=== PATIENT | female | born 1990 | race Caucasian/White ===

== ENCOUNTER 2020-07-28 19:42 | Emergency (ER) | payer OTHER ==
[2020-07-28] MEDS ORDERED: KETOROLAC 15 MG/ML 1 ML VIAL IM STA (20:18)
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
[2020-07-28 22:06] VITALS: BP 118/71; PULSE 68; RESP 16; TEMP 98.1
== END 2020-07-28 21:40 | disposition home or self-care (01) ==
LOC: EC 19:42
DX: S16.1XXA Strain of muscle, fascia and tendon at neck level, initial encounter (principal); F32.9 Major depressive disorder, single episode, unspecified; M43.6 Torticollis; F17.200 Nicotine dependence, unspecified, uncomplicated; W22.8XXA Striking against or struck by other objects, initial encounter
CPT/HCPCS: 81025; 72125; 70450; 99284; 96372; J1885

== ENCOUNTER 2022-09-04 21:55 | Emergency (ER) | payer OTHER ==
[2022-09-04 22:01] VITALS: BP 114/90; RESP 18; TEMP 98.1
[2022-09-04] MEDS ORDERED: LORazepam 2 MG/ML INJ IM STA (22:15)
[2022-09-04 22:21] VITALS: PULSE 90
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
== END 2022-09-04 23:50 | disposition home or self-care (01) ==
LOC: EC 21:55
DX: F41.0 Panic disorder [episodic paroxysmal anxiety] (principal); F17.200 Nicotine dependence, unspecified, uncomplicated; Z88.5 Allergy status to narcotic agent
CPT/HCPCS: 99283; 96372; J2060

== ENCOUNTER 2023-01-07 02:20 | Emergency (ER) | payer OTHER ==
[2023-01-07] MEDS ORDERED: IBUPROFEN 600 MG TAB PO STA (04:15)
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
[2023-01-07] MEDS ORDERED: ACETAMINOPHEN TAB 325 MG TAB PO STA (04:32)
[2023-01-07 04:46] VITALS: BP 98/75; PULSE 78; RESP 19; TEMP 98.1
--- NOTE | 2023-01-07 06:51 | XR ---
EXAMINATION TYPE: XR elbow complete RT DATE OF EXAM: 01/07/2023 CLINICAL HISTORY: pain TECHNIQUE: Frontal, lateral and oblique images of the right elbow are obtained. COMPARISON: None. FINDINGS: There is no acute fracture/dislocation evident of the elbow. No abnormal fat pad signs ar e seen. The overlying soft tissue appears unremarkable. IMPRESSION: There is no acute fracture or dislocation of the elbow. ICD 10 NO FRACTURE, INITIAL EVALUATION
== END 2023-01-07 04:47 | disposition home or self-care (01) ==
LOC: EC 02:20
DX: S50.01XA Contusion of right elbow, initial encounter (principal); F17.200 Nicotine dependence, unspecified, uncomplicated; Z88.5 Allergy status to narcotic agent; Y00.XXXA Assault by blunt object, initial encounter; Y92.009 Unspecified place in unspecified non-institutional (private) residence as the place of occurrence of the external cause
CPT/HCPCS: 99284

== ENCOUNTER 2023-11-12 14:16 | Emergency (ER) | payer OTHER ==
[2023-11-12 14:27] VITALS: RESP 18
--- NOTE | 2023-11-12 15:06 | ED ---
Lower Extremity Injury HPI - General Chief Complaint: Extremity Injury, Lower Stated Complaint: Fall, fluid in left knee injury Time Seen by Provider: 11/12/23 15:02 Source: patient, RN notes reviewed Mode of arrival: ambulatory Limitations: no limitations - History of Present Illness Initial Comments: 32-year-old female with no significant past medical history presenting with left knee pain x 3 weeks. States she had a mechanical fall 3 weeks ago, directly hitting her knee on metal. Since the injury, she has had an increasing amount of pain and swelling. She reports she has tried ice and Motrin, however swelling has not resolved. She reports the pain is mostly on the posterior aspect of left knee with some mild anterior pain as well. Denies numbness or tingling to the lower leg. Denies calf swelling. She is a current tobacco smoker, admitting to about 1/2 pack/day. Denies history of blood clots, thinners, recent travel or surgeries, estrogen replacement therapy. - Related Data Home Medications Medication Instructions Recorded Confirmed Acetaminophen Tab [Tylenol] 650 mg PO Q8H PRN 07/28/20 07/28/20 Ibuprofen [Motrin Ib] 600 mg PO Q8H PRN 07/28/20 07/28/20 Naproxen [Naprosyn] 500 mg PO Q12HR 07/28/20 07/28/20 tiZANidine HCL 4 mg PO TID PRN 07/28/20 07/28/20 Allergies Allergy/AdvReac Type Severity Reaction Status Date / Time codeine Allergy Dyspnea Verified 11/12/23 14:25 Review of Systems ROS Statement: Those systems with pertinent positive or pertinent negative responses have been documented in the HPI. ROS Other: All systems not noted in ROS Statement are negative. Past Medical History Past Medical History: Asthma Additional Past Medical History / Comment(s): chronic neck and back pain History of Any Multi-Drug Resistant Organisms: None Reported Past Surgical History: Orthopedic Surgery Past Psychological History: Depression Smoking Status: Current every day smoker Past Alcohol Use History: None Reported Past Drug Use History: None Reported General Exam Limitations: no limitations General appearance: alert, in no apparent distress Head exam: Present: atraumatic, normocephalic, normal inspection Eye exam: Present: normal appearance, PERRL, EOMI. Absent: scleral icterus, conjunctival injection, periorbital swelling Respiratory exam: Present: normal lung sounds bilaterally. Absent: respiratory distress, wheezes, rales, rhonchi, stridor Cardiovascular Exam: Present: regular rate, normal rhythm, normal heart sounds. Absent: systolic murmur, diastolic murmur, rubs, gallop, clicks Left Upper Leg exam: Present: normal inspection, full ROM. Absent: tenderness, swelling Knee exam: Present: full ROM, tenderness, swelling. Absent: normal inspection, laceration, deformity (Fluctuant mass present in left popliteal space with no overlying erythema. There is mild tenderness to palpation to the popliteal space and at the anterior aspect of left knee. Full range of motion, full sensation and dorsalis pedis pulses bilaterally) Lower Leg exam: Present: normal inspection, full ROM. Absent: tenderness, swelling (No calf swelling), Homans' sign Ankle exam: Present: normal inspection, full ROM. Absent: tenderness, swelling Foot/Toe exam: Present: normal inspection, full ROM. Absent: tenderness, swelling Neurovascular tendon exam: Present: no vascular compromise Neurological exam: Present: alert, oriented X3, CN II-XII intact Psychiatric exam: Present: normal affect, normal mood Course Vital Signs 11/12/23 14:23 Temperature 98.1 F Pulse Rate 107 H Respiratory 18 Rate Blood Pressure 125/83 O2 Sat by Pulse 99 Oximetry Medical Decision Making - Medical Decision Making Was pt. sent in by a medical professional or institution (, PA, TECHNICAL INTERN, urgent care, hospital, or group home...) When possible be specific @ -No Did you speak to anyone other than the patient for history (EMS, parent, family, police, friend...)? What history was obtained from this source @ -No Did you review nursing and triage notes (agree or disagree)? Why? @ -I reviewed and agree with nursing and triage notes Were old charts reviewed (outside hosp., previous admission, EMS record, old EKG, old radiological studies, urgent care reports/EKG's, group home records)? Report findings @ -No old charts were reviewed Differential Diagnosis (chest pain, altered mental status, abdominal pain women, abdominal pain men, vaginal bleeding, weakness, fever, dyspnea, syncope, headache, dizziness, GI bleed, back pain, seizure, CVA, palpatations, mental health, musculoskeletal)? @ -Differential Musculoskeletal Muscular strain, contusion, ligament sprain, fracture, arthritis, septic arthritis, bursitis, cellulitis, muscle spasm, nerve compression, DVT, arterial occlusion, herpes zoster, electrolyte abnormality, tumor.... This is not meant to be in all inclusive list EKG interpreted by me (3pts min.). @ -None X-rays interpreted by me (1pt min.). @ -X-ray reveals no acute osseous pathology CT interpreted by me (1pt min.). @ -None done U/S interpreted by me (1pt. min.). @ -Ultrasound reveals no evidence of DVT. there is a suspected popliteal fossa cyst measuring 5.7 cm What testing was considered but not performed or refused? (CT, X-rays, U/S, labs)? Why? @ -None What meds were considered but not given or refused? Why? @ -None Did you discuss the management of the patient with other professionals (professionals i.e. , PA, TECHNICAL INTERN, lab, RT, psych nurse, high school social science teacher, cheerleading coach, teacher, network security officer, case consultant)? Give summary @ -No Was smoking cessation discussed for >3mins.? @ -No Was critical care preformed (if so, how long)? @ -No Were there social determinants of health that impacted care today? How? (Homelessness, low income, unemployed, alcoholism, drug addiction, transportation, low edu. Level, literacy, decrease access to med. care, assisted, rehab)? @ -No Was there de-escalation of care discussed even if they declined (Discuss DNR or withdrawal of care, Hospice)? DNR status @ -No What co-morbidities impacted this encounter? (DM, HTN, Smoking, COPD, CAD, Cancer, CVA, ARF, Chemo, Hep., AIDS, mental health diagnosis, sleep apnea, morbid obesity)? @ -None Was patient admitted / discharged? Hospital course, mention meds given and route, prescriptions, significant lab abnormalities, going to OR and other pertinent info. @ -Patient was discharged. Patient was seen and evaluated for left knee pain x 3 weeks status post mechanical fall. Patient is neurovascularly intact. Examination remarkable for fluctuant mass in popliteal fossa. X-ray was negative for acute osseous pathology. Ultrasound revealed no evidence of DVT, however there is a suspected popliteal fossa cyst measuring 5.7 cm. Diagnosis of Su's cyst discussed with patient. Supportive care discussed. Tho wrap applied to affected area. Advised to follow-up with PCP. Strict return/alarm symptoms discussed with patient in detail and she shows understanding and agrees with plan. Case discussed with my attending Dr. Price. Patient discharged in stable condition. Undiagnosed new problem with uncertain prognosis? @ -No Drug Therapy requiring intensive monitoring for toxicity (Heparin, Nitro, Insulin, Cardizem)? @ -No Were any procedures done? @ -No Diagnosis/symptom? @ -Su's cyst of left knee Acute, or Chronic, or Acute on Chronic? @ -Acute Uncomplicated (without systemic symptoms) or Complicated (systemic symptoms)? @ -Uncomplicated Side effects of treatment? @ -No Exacerbation, Progression, or Severe Exacerbation? @ -No Poses a threat to life or bodily function? How? (Chest pain, [place], NH, pneumonia, PE, COPD, DKA, ARF, appy, cholecystitis, CVA, Diverticulitis, Homicidal, Suicidal, threat to staff... and all critical care pts) @ -Low likelihood Disposition Clinical Impression: Synovial cyst of popliteal space [Su], left knee Disposition: HOME SELF-CARE Condition: Stable Instructions (If sedation given, give patient instructions): Su Cyst (ED) Additional Instructions: Please follow-up with PCP as discussed. Please return to the Emergency Department if symptoms worsen or any other concerns. Is patient prescribed a controlled substance at d/c from ED?: No Referrals: None,Stated [Primary Care Provider] - 1-2 days Time of Disposition: 16:46
--- NOTE | 2023-11-12 15:34 | XR ---
EXAMINATION TYPE: XR knee complete LT DATE OF EXAM: 11/12/2023 3:25 PM CLINICAL INDICATION:Female, 32 years old with history of left knee pain; [facility] COMPARISON: None. TECHNIQUE: The Left knee(s) was examined in Frontal, lateral and oblique projections. FINDINGS: No evidence of any acute osseous pathology, soft tissue swelling, or joint effusion is no azam. IMPRESSION: No acute osseous pathology.
[2023-11-12] MEDS: IBUPROFEN 400 MG TAB PO STA (15:47)
--- NOTE | 2023-11-12 15:48 | US ---
EXAMINATION TYPE: US venous doppler duplex LE LT DATE OF EXAM: 11/12/2023 3:35 PM COMPARISON: NONE CLINICAL INDICATION: Female, 32 years old with history of left popliteal edema; Pain left knee after injury SIDE PERFORMED: Left TECHNIQUE: The lower extremity deep venous system is examined utilizing real time linear array sonog carlotta with graded compression, doppler sonography and color-flow sonography. VESSELS IMAGED: Common Femoral Vein Deep Femoral Vein Greater Saphenous Vein * Femoral Vein Popliteal Vein Small Saphenous Vein * Proximal Calf Veins (* superficial vessels) Left Leg: Negative for DVT, complex fluid collection left posterior knee in area of pt's swelling= 6 .4 x 2.1 x 5.7 cm Grayscale, color doppler, spectral doppler imaging performed of the deep veins of the lower extremiti es. There is normal flow, compressibility, vascular waveforms. IMPRESSION: 1. No evidence of deep venous thrombosis. 2. Suspected popliteal fossa cyst measuring up to 5.7 cm.
[2023-11-12 17:11] VITALS: BP 124/81; PULSE 63; TEMP 98
== END 2023-11-12 17:02 | disposition home or self-care (01) ==
LOC: EC 14:16
DX: M71.22 Synovial cyst of popliteal space [Baker], left knee (principal); F17.200 Nicotine dependence, unspecified, uncomplicated; Z88.5 Allergy status to narcotic agent
CPT/HCPCS: 99284

== ENCOUNTER → 2023-12-11 | Outpatient (CLI) | payer OTHER ==
--- NOTE | 2023-12-25 16:25 | MR ---
EXAMINATION TYPE: MR knee LT wo con DATE OF EXAM: 12/11/2023 COMPARISON: Outside radiograph 11/28/23 HISTORY: 32-year-old female [id number] Lt knee pain TECHNIQUE: Multiplanar, multisequence imaging of the left knee is performed without IV contrast. FINDINGS: The ACL, PCL, LCL complex appear intact. There is obliquely oriented signal within the posterior horn of the medial meniscus that does not lazara jannet contact the articular surface at this time. Medial compartment articular cartilage is maintained . Lateral meniscus is intact. Lateral compartment articular cartilage volume is maintained. Patellofemoral compartment articular cartilage is maintained. Extensor mechanism is intact. Pronounced soft tissue edema overlying the otherwise intact MCL. Abnormal heterogeneous edema and flu id measures up to 8.4 cm craniocaudal by 1.0 cm thick by 3.3 cm AP. This edema is located along the m edial aspect of the knee and tracks along the pes anserine muscles. These tendons appear to remain in tact. Additional soft tissue edema overlying the superficial fascia along the anterolateral aspect of the k nee. No knee joint effusion or Su's cyst. Normal popliteal artery anatomy and muscle bulk. Patchy red marrow compatible patient's younger age. No acute or healing fracture is seen. IMPRESSION: 1. Pronounced medial sided soft tissue swelling with heterogeneous edema and fluid measuring 8.4 x 1. 0 x 3.3 cm overlying the MCL and partially tracking around the pes anserine muscles. No discrete tend on, ligament, or muscle tear is identified. Consider large soft tissue contusion or myofascial sheari ng injury. 2. Prominent but lesser degree of subcutaneous soft tissue edema along the anterolateral aspect of th e knee. 3. Degenerative signal involving the posterior horn of the medial meniscus without convincing menisca l tear at this time. Consider follow-up in 6 months to reassess the meniscus.
== END | disposition home or self-care (01) ==
LOC: RADMRIMAIN 12:43
PROVIDERS: ATTEND Orthopaedic Surgery
DX: M17.12 Unilateral primary osteoarthritis, left knee (principal); R60.0 Localized edema

== ENCOUNTER → 2024-01-23 | Outpatient (CLI) | payer OTHER ==
[2024-01-23 15:18] LABS: Basophils # (A) 0.01 X 10*3/uL (0.00-0.10); Basophils % (A) 0.1 %; Eosinophils # (A) 0.19 X 10*3/uL (0.04-0.35); Eosinophils % (A) 2.6 %; HCT 41.3 % (37.2-46.3); HGB 13.6 g/dL (12.0-15.0); Lymphocytes # (A) 3.57 X 10*3/uL (0.90-5.00); Lymphocytes % (A) 48.7 %; MCH 30.1 pg (27.0-32.0); MCHC 32.9 g/dL (32.0-37.0); MCV 91.4 FL (80.0-97.0); Mean Platelet Volume 10.3 FL (9.5-12.2); Monocytes % (A) 6.8 %; NRBC Per 100 WBC 0 X 10*3/uL (0.00-0.01); Neutrophils # (A) 3.05 X 10*3/uL (1.80-7.70); Neutrophils % (A) 41.7 %; Platelet Count 235 X 10*3/uL (140-440); RBC 4.52 X 10*6/uL (4.10-5.20); WBC 7.33 X 10*3/uL (4.50-10.00)
[2024-01-23 18:37] LABS: Anion Gap 10.6 mmol/L (4.00-12.00); Carbon Dioxide 24.4 mmol/L (21.6-31.8); Potassium 4.3 mmol/L (3.5-5.5)
== END | disposition home or self-care (01) ==
LOC: LABWHC1 08:55
PROVIDERS: ATTEND Orthopaedic Surgery
DX: Z01.812 Encounter for preprocedural laboratory examination (principal); M23.92 Unspecified internal derangement of left knee
CPT/HCPCS: 36415; 80051; 85025

== ENCOUNTER 2024-02-01 11:20 | Day surgery (SDC) | payer OTHER ==
--- NOTE | 2024-01-31 14:48 | HP ---
HISTORY AND PHYSICAL DATE OF SURGERY: 02/01/2024. HISTORY OF PRESENT ILLNESS: Neelima Richardson is a 33-year-old patient seen with progressive left knee pain. We discussed options regarding treatment. She elected to proceed with left knee arthroscopy. Consent obtained. PAST MEDICAL HISTORY: Noncontributory. SURGICAL HISTORY: Noncontributory. DAILY MEDICATIONS: Ibuprofen. ALLERGIES: None reported. SOCIAL HISTORY: She smokes cigarettes. PHYSICAL EVALUATION OF THE LEFT KNEE: Range of motion is 0 to 100 in 25 degrees. She has a mild effusion. Tenderness, medial joint line. Positive medial Sadie's. Ligaments stable. Hip rotation without pain. Distal neurovascular exam is intact. IMAGING STUDIES: Radiographs of the left knee revealed no osseous abnormality. MRI left knee revealed an abnormal signal medial meniscus along with medial soft tissue swelling. IMPRESSION: Internal derangement of left knee with medial meniscal tear. PLAN: Left knee arthroscopy with partial medial meniscectomy and debridement. MMODL / IJN: [id number] /
[2024-02-01] MEDS: IV FLUID CONTINUATION 1,000 ML IV ONE ×2 (12:01→14:06)
[2024-02-01] MEDS: DEXAMETHASONE SOD PHOSPHATE 4 MG/ML 1 ML VIAL IV ONE (12:04)
[2024-02-01] MEDS: LACTATED RINGERS 1,000 ML IV SCH (12:04)
[2024-02-01] MEDS: ONDANSETRON 4 MG/2 ML VIAL IVP ONE (12:04)
[2024-02-01] MEDS: SCOPOLAMINE 1 MG/72 HR PATCH TRANSDERM STA (12:08)
[2024-02-01] MEDS ORDERED: PROPOFOL 10 MG/ML 20 ML VIAL IV ONE (12:28)
[2024-02-01] MEDS ORDERED: KETOROLAC 15 MG/ML 1 ML VIAL ONE (12:28)
[2024-02-01] MEDS ORDERED: MIDAZOLAM 2 MG/2 ML VIAL ONE (12:28)
[2024-02-01] MEDS ORDERED: fentaNYL (PF) 50 MCG/ML 2 ML AMP ONE (12:28)
[2024-02-01] MEDS ORDERED: LIDOCAINE 1% INJ 10MG/ML (20 ML MDV) ONE (12:28)
[2024-02-01] MEDS: BUPIVACAINE (PF) 0.25% 30 ML VIAL INTRAARTIC ONE (12:33)
--- NOTE | 2024-02-01 13:17 | P.OP ---
Date of Procedure: 02/01/24 Preoperative Diagnosis: Internal derangement left knee Postoperative Diagnosis: 1. Tear medial and lateral meniscus left knee 2. Reactive synovitis medial, lateral and suprapatellar compartments left knee 3. 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 Arthroscopic partial medial and lateral meniscectomy left knee 2. Arthroscopic partial synovectomy medial, lateral and suprapatellar compartments left knee 3. Arthroscopic chondroplasty medial femoral condyle left knee Anesthesia: MAYRAA, local Surgeon: Luciano Taylor Estimated Blood Loss (ml): 5 Pathology: none sent Condition: stable Disposition: PACU Indications for Procedure: 33-year-old patient seen with progressive left knee pain. After treatment options were discussed, she elected to proceed with arthroscopy. Operative Findings: See description of procedure Description of Procedure: Patient was taken to the operative suite. Patient underwent a general anesthetic by the department of anesthesia. Patient was given preoperative antibiotics. The left lower extremity was placed in a well-padded arthroscopic leg holt. The left leg was prepped and draped in the normal sterile orthopedic fashion. A lateral parapatellar and suprapatellar incision was made. Trochars were inserted. Arthroscopy was initiated. Suprapatellar pouch revealed diffuse thick reactive synovitis. The patellofemoral joint appeared to articular congruently. There was grade I chondromalacia of the femoral sulcus. The scope was guided into the medial gutter. No loose bodies or plica were identified. The scope was then guided into the medial compartment. A medial parapatellar incision was made. Trocar inserted followed by probe. There was a radial tear posterior horn medial meniscus. There was thick reactive synovitis anteriorly. There was near along the medial aspect of the medial femoral condyle with grade I/II chondromalacia with some osteochondral flap tears. I performed a partial medial meniscectomy getting down to stable meniscal tissue. I performed a partial synovectomy decompressing the reactive synovitis. I performed a chondroplasty of the medial femoral condyle getting down to stable osteochondral tissue. The residual meniscus was probed and was found to be stable. There was good decompression of the synovitis. The residual osteochondral surface was stable. Scope and probe were then guided into the intercondylar notch. Cruciates were identified, probed and found to be stable. The scope and probe were then guided into lateral compartment. The lateral meniscus revealed a small tear mid body area. There was thick reactive synovitis anteriorly. There was no chondromalacia. I performed a partial lateral meniscectomy getting down to stable meniscal tissue. I performed a partial synovectomy decompressing the reactive synovitis. The residual meniscus was stable. There was good decompression of the synovitis. The scope was in guided back into the suprapatellar compartment. I used a motorized shaver into the suprasellar compartment. I performed a partial synovectomy. The shaver was removed. There was good decompression of the synovitis. I took 1 more look around the entire knee, no residual debris. Instruments were now removed from the joint. The joint was infiltrated with .25% Marcaine. Steri-Strips were applied to the portal sites. Sterile dressings were applied. The patient was placed into a CONCEPCION hose. No tourniquet was utilized. The patient was awakened, transferred to a bed and taken to recovery stable satisfactory condition.
[2024-02-01] MEDS: fentaNYL (PF) 50 MCG/ML 2 ML AMP IV PRN (13:24)
[2024-02-01 13:28] VITALS: TEMP 97.4
[2024-02-01 14:19] VITALS: RESP 18
[2024-02-01] MEDS: HYDROcodone/APAP 5-325MG 1 EACH TAB PO STA (14:27)
[2024-02-01 14:53] VITALS: BP 118/40; PULSE 63
== END 2024-02-01 15:26 | disposition home or self-care (01) ==
LOC: OR 11:20
PROVIDERS: ATTEND Orthopaedic Surgery
DX: S83.282A Other tear of lateral meniscus, current injury, left knee, initial encounter (principal); M65.162 Other infective (teno)synovitis, left knee; M22.42 Chondromalacia patellae, left knee; F17.210 Nicotine dependence, cigarettes, uncomplicated; Z79.1 Long term (current) use of non-steroidal anti-inflammatories (NSAID); X58.XXXA Exposure to other specified factors, initial encounter
CPT/HCPCS: 81025

== ENCOUNTER 2024-08-12 06:23 | Emergency (ER) | payer OTHER ==
[2024-08-12] MEDS: IBUPROFEN 600 MG TAB PO STA (06:50)
[2024-08-12] MEDS: ACETAMINOPHEN TAB 325 MG TAB PO STA (06:51)
[2024-08-12 07:25] LABS: Influenza A Detected (Not Detectd); Influenza B Not Detected (Not Detectd); RSV Not Detected (Not Detectd)
--- NOTE | 2024-08-12 07:51 | ED ---
Fever HPI - General Chief Complaint: Fever Stated Complaint: fever,chills,body aches Time Seen by Provider: 08/12/24 07:15 Source: patient, RN notes reviewed Mode of arrival: ambulatory Limitations: no limitations - History of Present Illness Initial Comments: 33-year-old female presented the ER for evaluation of myalgias and fevers. Patient states yesterday she was feeling extremely unwell with full body aches, chills, hot flashes and fevers. She did take [id number] Tylenol, Robitussin and Mucinex for symptoms without relief. Patient reports a mild cough but denies any shortness of breath or chest pain. No abdominal pain, nausea, vomiting or diarrhea. Patient extremely anxious upon examination. Patient is a smoker. No other complaints at this time. - Related Data Home Medications Medication Instructions Recorded Confirmed Albuterol Inhaler [Ventolin Hfa 1 - 2 puff INHALATION Q6H PRN 01/31/24 02/01/24 Inhaler] Previous Rx's Medication Instructions Recorded HYDROcodone/APAP 5-325MG [[place] 1 tab PO Q6HR PRN #18 tab 02/01/24 5-325] Allergies Allergy/AdvReac Type Severity Reaction Status Date / Time codeine Allergy Dyspnea Verified 08/12/24 06:37 Review of Systems ROS Statement: Those systems with pertinent positive or pertinent negative responses have been documented in the HPI. ROS Other: All systems not noted in ROS Statement are negative. Past Medical History Past Medical History: Asthma, Thyroid Disorder Additional Past Medical History / Comment(s): chronic neck and back pain History of Any Multi-Drug Resistant Organisms: None Reported Past Surgical History: Orthopedic Surgery Additional Past Surgical History / Comment(s): right shoulder surg., pain procedures Past Anesthesia/Blood Transfusion Reactions: No Reported Reaction Past Psychological History: Depression Smoking Status: Current every day smoker Past Alcohol Use History: None Reported Past Drug Use History: None Reported - Past Family History Mother Family Medical History: Deep Vein Thrombosis (DVT) General Exam Limitations: no limitations General appearance: alert, in no apparent distress ENT exam: Present: normal exam, mucous membranes moist (Mild erythema to), TM's normal bilaterally Neck exam: Present: normal inspection. Absent: tenderness, meningismus, lymphadenopathy Respiratory exam: Present: normal lung sounds bilaterally. Absent: respiratory distress, wheezes, rales, rhonchi, stridor Cardiovascular Exam: Present: normal rhythm, tachycardia, normal heart sounds GI/Abdominal exam: Present: soft, normal bowel sounds. Absent: distended, tenderness, guarding, rebound, rigid Extremities exam: Present: normal inspection, full ROM, normal capillary refill. Absent: tenderness, pedal edema, joint swelling, calf tenderness Neurological exam: Present: alert, oriented X3, CN II-XII intact Skin exam: Present: warm, intact, normal color, diaphoretic (Mild) Course Vital Signs 08/12/24 08/12/24 08/12/24 06:37 08:12 08:20 Temperature 102.8 F H 98.8 F 98.8 F Pulse Rate 141 H 98 Respiratory 40 H 20 Rate Blood Pressure 119/78 126/68 O2 Sat by Pulse 100 99 Oximetry Medical Decision Making - Medical Decision Making Was pt. sent in by a medical professional or institution (, PA, HOUSEKEEPING CLEANER, urgent care, hospital, or custodial...) When possible be specific @ -No Did you speak to anyone other than the patient for history (EMS, parent, family, police, friend...)? What history was obtained from this source @ -No Did you review nursing and triage notes (agree or disagree)? Why? @ -I reviewed and agree with nursing and triage notes Were old charts reviewed (outside hosp., previous admission, EMS record, old EKG, old radiological studies, urgent care reports/EKG's, custodial records)? Report findings @ -No old charts were reviewed Differential Diagnosis (chest pain, altered mental status, abdominal pain women, abdominal pain men, vaginal bleeding, weakness, fever, dyspnea, syncope, headache, dizziness, GI bleed, back pain, seizure, CVA, palpatations, mental health, musculoskeletal)? @ -Differential Fever:Pneumonia, viral URI, endocarditis, myocarditis, pericarditis, otitis, sinusitis, peritonsillar Abscess, retropharyngeal Abscess, epiglottitis, peritonitis, appendicitis, [place] cystitis, diverticulitis, hepatitis, colitis, UTI, PID, TOA, pyelonephritis, prostatitis, epididymitis, meningitis, encephalitis, pulmonary embolism, CVA, thyroid storm, pancreatitis, adrenal crisis, cavernous sinus thrombosis, this is not meant to be an all- inclusive list. EKG interpreted by me (3pts min.). @ -None done X-rays interpreted by me (1pt min.). @ -None done CT interpreted by me (1pt min.). @ -None done U/S interpreted by me (1pt. min.). @ -None done What testing was considered but not performed or refused? (CT, X-rays, U/S, labs)? Why? @ -None What meds were considered but not given or refused? Why? @ -None Did you discuss the management of the patient with other professionals (professionals i.e. , PA, HOUSEKEEPING CLEANER, lab, RT, psych nurse, clinical social worker, retort loader, teacher, national insurance officer, case hardener)? Give summary @ -No Was smoking cessation discussed for >3mins.? @ -I discussed smoking cessation for greater than 3 minutes. The risk of smoking were discussed with the patient including but not limited to risks of cancer, stroke, coronary artery disease and COPD. Also discussed with patient were multiple methods of quitting smoking. Lastly we discussed the financial cost of smoking. Was critical care preformed (if so, how long)? @ -No Were there social determinants of health that impacted care today? How? (Homelessness, low income, unemployed, alcoholism, drug addiction, transportation, low edu. Level, literacy, decrease access to med. care, care home, rehab)? @ -No Was there de-escalation of care discussed even if they declined (Discuss DNR or withdrawal of care, Hospice)? DNR status @ -No What co-morbidities impacted this encounter? (DM, HTN, Smoking, COPD, CAD, Cancer, CVA, ARF, Chemo, Hep., AIDS, mental health diagnosis, sleep apnea, morbid obesity)? @ -None Was patient admitted / discharged? Hospital course, mention meds given and route, prescriptions, significant lab abnormalities, going to OR and other pertinent info. @ -Discharge. 33-year-old female presented to ER for evaluation ofmyalgias and fever. Upon arrival patient febrile at 102.8 with associated tachycardia. Patient is extremely anxious upon rooming and mildly diaphoretic. Pain in the ER positive for influenza A. RSV and COVID-negative. Patient given ibuprofen and Tylenol for fever control in the emergency department, with improvement. Upon reevaluation, patient resting company in exam room no signs of acute distress. Results discussed with patient, all questions answered. I advised outpatient ibuprofen and Tylenol for fever and symptom control. Patient is stable for discharge. Strict return parameters discussed. Patient discharged stable condition with follow-up to PCP. Patient verbally expressed understanding and agreement with care plan. Case discussed with ED attending, Dr. Gould. Undiagnosed new problem with uncertain prognosis? @ -No Drug Therapy requiring intensive monitoring for toxicity (Heparin, Nitro, Insulin, Cardizem)? @ -No Were any procedures done? @ -No Diagnosis/symptom? @ -Influenza A/acute viral sinusitis Acute, or Chronic, or Acute on Chronic? @ -Acute Uncomplicated (without systemic symptoms) or Complicated (systemic symptoms)? @ -Uncomplicated Side effects of treatment? @ -No Exacerbation, Progression, or Severe Exacerbation? @ -No Poses a threat to life or bodily function? How? (Chest pain, [place], [place], pneumonia, PE, COPD, DKA, ARF, appy, cholecystitis, CVA, Diverticulitis, Homicidal, Suicidal, threat to staff... and all critical care pts) @ -No - Lab Data Lab Results 08/12/24 Range/Units 06:42 Influenza Type A (PCR) Detected A (Not Detectd) Influenza Type B (PCR) Not Detected (Not Detectd) RSV (PCR) Not Detected (Not Detectd) SARS-CoV-2 (PCR) Not Detected (Not Detectd) Disposition Clinical Impression: Influenza A, Acute viral sinusitis Disposition: HOME SELF-CARE Condition: Stable Instructions (If sedation given, give patient instructions): Fever in Adults (ED) Additional Instructions: Alternate [id number] ibuprofen and Tylenol for pain control. Follow-up with PCP. Return to the ER for any new or worsening concerns. Is patient prescribed a controlled substance at d/c from ED?: No Referrals: Kenton Dia MD [Primary Care Provider] - 1-2 days Time of Disposition: 07:51
[2024-08-12 08:12] VITALS: TEMP 98.8
[2024-08-12 08:23] VITALS: BP 126/68; PULSE 98; RESP 20
== END 2024-08-12 08:21 | disposition home or self-care (01) ==
LOC: EC 06:23
DX: J10.1 Influenza due to other identified influenza virus with other respiratory manifestations (principal); J01.90 Acute sinusitis, unspecified; F17.200 Nicotine dependence, unspecified, uncomplicated; Z88.5 Allergy status to narcotic agent
CPT/HCPCS: 87636; 99283; 99406